=== PATIENT | female | born 2000 | race Two or more races ===

== ENCOUNTER 2020-06-01 16:05 | Outpatient (CLI) | payer OTHER | END 2020-06-01 16:06 | disposition home or self-care (01) | LOC: OFIC 805 16:05 | PROVIDERS: ATTEND Otolaryngology Otology & Neurotology | DX: K21.9 Gastro-esophageal reflux disease without esophagitis (principal); J02.8 Acute pharyngitis due to other specified organisms; R13.19 Other dysphagia ==